=== PATIENT | female | born 1955 | race Caucasian/White ===

== ENCOUNTER 2017-10-24 21:42 | Emergency (ER) | payer MEDICARE ==
[2017-10-24 22:44] LABS: #Basophils 0.1 thou/uL (0.0-0.2); #Eosinphils 0.1 thou/uL (0.0-0.7); #Lymphocytes 1.5 thou/uL (1.20-3.40); #Monocytes 0.6 thou/uL (0.11-0.59); #Neutrophils 8.3 thou/uL (1.40-6.50); %Basophils 0.6 % (0.0-1.0); %Eosinophils 0.5 % (0.0-10.0); %Lymphocytes 13.8 % (21.0-51.0); Hemoglobin 13.5 g/dL (12.0-16.0); Mean Corpuscular HGB CONC 34.2 g/dL (32.0-36.0); Mean Corpuscular Volume 93.7 fL (78.0-98.0); Mean Platelet Volume 8.1 fL (7.4-10.4); Platelet Count 238 thou/uL (130-400); RBC Distribution Width 12.7 % (11.5-14.5); Red Blood Cell (RBC) Count 4.23 mill/uL (4.20-5.40); White Blood Cell (WBC) Count 10.5 thou/uL (4.8-10.8)
[2017-10-24 22:54] LABS: ALT (SGPT) 39 U/L (8-55); AST (SGOT) 26 U/L (5-34); Alkaline Phosphatase 94 U/L (40-150); Anion Gap 19 mmol/L (10-20); BUN (Urea Nitrogen) 12 mg/dL (9.8-20.1); Bilirubin, Total 0.2 mg/dL (0.2-1.2); Calc. Creatinine Clearance 0 mL/min (70-130); Calcium 9.7 mg/dL (7.8-10.44); Carbon Dioxide 23 mmol/L (22-29); Chloride 105 mmol/L (98-107); Estimated GFR-MDRD 71; Globulin 3.2 g/dL (2.4-3.5); Glucose 133 mg/dL (70-105); Protein, Total 8.2 g/dL (6.0-8.3); Sodium 143 mmol/L (136-145)
[2017-10-24] MEDS ORDERED: Promethazine HCl 25 MG/ML VIAL ONE (23:14)
--- NOTE | 2017-10-24 23:17 | RAD ---
ACUTE ABDOMINAL SERIES WITH FRONTAL VIEW CHEST AND TWO VIEW ABDOMEN: 10/24/17 INDICATION: Vomiting. Pain of the abdomen. FINDINGS: There is no evidence of consolidation, effusion or pneumothorax. No free air beneath the hemidiaphrag ms. There is elevation of the right hemidiaphragm. There are differential air fluid levels within th e right abdomen on the upright view. IMPRESSION: 1. No free air. 2. No lobar consolidation of the lungs. 3. Differential air fluid levels in the right abdomen. This could relate to an ileus or obstruct ion. Recommend a followup CT scan utilizing IV and enteric contrast. POS: [facility]
--- NOTE | 2017-10-24 23:28 | CT ---
HEAD CT NONCONTRAST: 10/24/17 COMPARISON: 01/05/12. INDICATION: Fall with head injury and vomiting. FINDINGS: There is normal size of ventricular system. No acute intracranial hemorrhage, mass effect, or midline shift. Calvarium is intact. No pneumocephalus. There is right mastoid opacification. A posterior sca lp hematoma is present. IMPRESSION: 1. No acute intracranial hemorrhage or mass effect. 2. Posterior scalp hematoma. 3. Right mastoid opacification. POS: [facility]
== END 2017-10-25 01:23 | disposition home or self-care (01) ==
LOC: ERS 21:42
DX: S00.31XA Abrasion of nose, initial encounter (principal); S00.211A Abrasion of right eyelid and periocular area, initial encounter; R11.2 Nausea with vomiting, unspecified; F31.9 Bipolar disorder, unspecified; F41.9 Anxiety disorder, unspecified; W22.8XXA Striking against or struck by other objects, initial encounter
CPT/HCPCS: 70450; 74022; 80053; 80307; 85025; 96365; 96366; J2550

== ENCOUNTER 2019-08-18 12:31 | Outpatient (CLI) | payer MEDICARE ==
--- NOTE | 2019-08-18 16:48 | NM ---
Radionucleotide hepatobiliary scan and gallbladder ejection fraction HISTORY: Right upper quadrant pain. FINDINGS: Early images show physiologic uptake of radiotracer throughout the hepatic parenchyma. Gall bladder first visualized at 11 minutes. Uptake is evident within the small bowel at 20 minutes. After administration of CCK analog, some excretion of radiotracer from the gallbladder to the small b owel is evident. Ejection fraction calculated at 16%. IMPRESSION : No evidence of biliary obstruction. Evidence of chronic gallbladder dyskinesis with abnormal gallbladder ejection fraction..
== END 2019-08-18 12:32 | disposition home or self-care (01) ==
LOC: NM 12:31
PROVIDERS: ATTEND Family Medicine
DX: K80.20 Calculus of gallbladder without cholecystitis without obstruction (principal)
CPT/HCPCS: 78227; A9537

== ENCOUNTER 2019-08-28 06:34 | Outpatient (CLI) | payer MEDICARE, OTHER ==
[2019-08-28 16:04] LABS: #Basophils 0.1 thou/uL (0.0-0.2); #Eosinphils 0.2 thou/uL (0.0-0.7); #Lymphocytes 2.5 thou/uL (1.20-3.40); #Monocytes 0.5 thou/uL (0.11-0.59); #Neutrophils 3.2 thou/uL (1.40-6.50); %Basophils 1.3 % (0.0-1.0); %Eosinophils 2.6 % (0.0-10.0); %Monocytes 7.9 % (0.0-10.0); %Neutrophils 49.3 % (42.0-75.0); Hemoglobin 13.2 g/dL (12.0-16.0); Mean Corpuscular HGB CONC 33.4 g/dL (32.0-36.0); Mean Corpuscular Hemoglobin 31.2 pg (27.0-31.0); Mean Corpuscular Volume 93.5 fL (78.0-98.0); Platelet Count 204 thou/uL (130-400); RBC Distribution Width 11.8 % (11.5-14.5); Red Blood Cell (RBC) Count 4.22 mill/uL (4.20-5.40); White Blood Cell (WBC) Count 6.5 thou/uL (4.8-10.8)
[2019-08-28 16:13] LABS: ALT (SGPT) 20 U/L (8-55); AST (SGOT) 18 U/L (5-34); Albumin 4.4 g/dL (3.4-4.8); Alkaline Phosphatase 64 U/L (40-110); Anion Gap 10 mmol/L (10-20); BUN (Urea Nitrogen) 9 mg/dL (9.8-20.1); Bilirubin, Direct 0.2 mg/dL (0.1-0.3); Bilirubin, Total 0.5 mg/dL (0.2-1.2); Calc. Creatinine Clearance 0 mL/min (70-130); Calcium 9.4 mg/dL (7.8-10.44); Carbon Dioxide 28 mmol/L (23-31); Chloride 104 mmol/L (98-107); Estimated GFR-MDRD 72; Glucose 99 mg/dL (80-115); Potassium 4.2 mmol/L (3.5-5.1); Protein, Total 6.7 g/dL (6.0-8.3); Sodium 138 mmol/L (136-145)
[2019-08-29 14:25] LABS: SARS-CoV-2 MS2 Positive; SARS-CoV-2 N Gene Negative; SARS-CoV-2 S Gene Negative; SARS-CoV-2 orf1ab Negative
== END 2019-08-28 06:35 | disposition home or self-care (01) ==
LOC: LABBT 06:34
PROVIDERS: ATTEND Surgery
DX: Z01.812 Encounter for preprocedural laboratory examination (principal); Z11.59 Encounter for screening for other viral diseases; K80.20 Calculus of gallbladder without cholecystitis without obstruction
CPT/HCPCS: 80048; 80076; 85025; U0003; 87635

== ENCOUNTER 2019-09-01 11:07 | Day surgery (SDC) | payer MEDICARE ==
[2019-08-27 10:41] VITALS: BMI 30.2
[2019-09-01] MEDS ORDERED: Dexamethasone 20 MG/5 ML VIAL ONE (11:31)
[2019-09-01] MEDS ORDERED: Glycopyrrolate 0.2 MG/ML 5 ML SYRINGE ONE (11:31)
[2019-09-01] MEDS ORDERED: Ondansetron PF 4 MG/2 ML Vial ONE (11:31)
[2019-09-01] MEDS ORDERED: PROPOFOL 200 MG/20 ML VIAL ONE (11:31)
[2019-09-01] MEDS ORDERED: Rocuronium Bromide 10 MG/ML (10ML VIAL) ONE (11:31)
[2019-09-01] MEDS ORDERED: Lidocaine 1% PF 5 ML VIAL ONE (11:31)
[2019-09-01] MEDS ORDERED: Midazolam HCl 2 mg/2 ml Vial ONE (13:19)
[2019-09-01] MEDS ORDERED: Lidocaine 1% w/Epinephrine 1:100K 20 ML VIAL ONE (13:19)
[2019-09-01] MEDS ORDERED: Fentanyl 100 MCG/2 ML VIAL ONE ×4 (13:19→15:49)
[2019-09-01] MEDS ORDERED: HYDROmorphone 0.5 MG/0.5 ML SYRINGE ONE (13:19)
[2019-09-01] MEDS ORDERED: Bupivacaine 0.25% HCL 30 ML VIAL ONE (13:19)
[2019-09-01] MEDS ORDERED: Lidocaine 2% Jelly 5 ML TUBE ONE (13:20)
[2019-09-01] MEDS ORDERED: Promethazine HCl 25 MG/ML VIAL ONE ×2 (15:13→18:17)
[2019-09-01] MEDS ORDERED: HYDROmorphone 2 MG/ML VIAL ONE (15:57)
[2019-09-01] MEDS ORDERED: HYDROcodone/Acetaminophen 5/325 mg Tablet ONE (18:14)
--- NOTE | 2019-09-02 00:55 | OP ---
DATE OF PROCEDURE: 09/01/2019 PREOPERATIVE DIAGNOSIS: Symptomatic gallstones. POSTOPERATIVE DIAGNOSIS: Symptomatic gallstones. PROCEDURE PERFORMED: Laparoscopic cholecystectomy. ANESTHESIA: General. ESTIMATED BLOOD LOSS: Minimal. COMPLICATIONS: None. SPECIMEN: Gallbladder. FINDINGS: Significant intraabdominal adhesions. TECHNIQUE: The patient was taken to the operating room and laid supine on the operating room table. After general anesthetic was obtained, the abdomen was prepped and draped in sterile fashion. A left subcostal 5 mm Optiview trocar was placed in usual fashion and high-flow pneumoperitoneum was obtained. The patient had significant abdominal adhesions in her abdomen that made placement of the other port sites difficult, so an additional 5 mm port was placed in the left lateral abdomen. This allows for sharp dissection and taking down these adhesions. There was no injury to any intraabdominal structures during the adhesiolysis. After significant adhesiolysis without injury, the other ports were able to be put in. A 12 mm port was placed below the umbilicus and 2 right upper quadrant 5-mm ports. The gallbladder was able to be retracted from the gallbladder fossa. The peritoneum was opened anterior and posteriorly. The critical view of triangle was seen showing only the cystic duct and cystic artery branching medial to lateral. There were no other branching structures. Two clips were placed proximally and one distally and the cystic duct was cut using laparoscopic scissors. Cystic artery was taken in the same way. Cautery was then used to dissect the gallbladder out of the gallbladder fossa. The gallbladder was placed in EndoCatch bag and brought out through the 12-mm trocar site. This trocar site was closed using GraNee needle Vicryl tie. There was no bleeding in the right upper quadrant. There was no evidence of injury to any intraabdominal structures. All port sites were infiltrated using local anesthetic. All ports were removed under camera visualization and pneumoperitoneum was let down. Vicryl was used to close the fascial defect below the umbilicus. All incisions were irrigated and closed using 4-0 Monocryl and Dermabond. The patient was sent to Recovery in stable condition. All instrument counts, needle counts, lap counts were correct. Job ID: [id number]
== END 2019-09-01 19:00 | disposition home or self-care (01) ==
LOC: SDC 11:07
PROVIDERS: ATTEND Surgery
PROC: 0FT44ZZ Resection of Gallbladder, Percutaneous Endoscopic Approach (ICD-10-PCS; principal; 2019-09-01)
DX: K80.10 Calculus of gallbladder with chronic cholecystitis without obstruction (principal); K66.0 Peritoneal adhesions (postprocedural) (postinfection); J30.2 Other seasonal allergic rhinitis; M79.7 Fibromyalgia; F41.9 Anxiety disorder, unspecified; M19.90 Unspecified osteoarthritis, unspecified site; G89.29 Other chronic pain; Z79.899 Other long term (current) drug therapy; Z88.6 Allergy status to analgesic agent
CPT/HCPCS: 88304; J0690; J1100; J1170; J2001; J2250; J2405; J2550; J2704; J3010; S0020

== ENCOUNTER 2022-09-14 10:38 | Outpatient (CLI) | payer MEDICARE, OTHER ==
[2022-09-14 12:40] LABS: #Eosinphils 0.2 10x3/uL (0.0-0.5); #Monocytes 0.8 10x3/uL (0.0-1.1); #Neutrophils 4.1 10x3/uL (1.5-8.4); %Basophils 0.5 % (0.0-2.0); %Eosinophils 2.3 % (0.0-6.0); %Lymphocytes 34.7 % (18.0-47.0); %Monocytes 9.8 % (0.0-10.0); %Neutrophils 52.2 % (40.0-75.0); Mean Corpuscular HGB CONC 31.8 g/dL (32.0-36.0); Mean Corpuscular Hemoglobin 30.2 pg (27.0-33.0); Mean Corpuscular Volume 95.1 fl (81.6-98.3); Mean Platelet Volume 10.9 fl (7.4-10.4); Platelet Count 213 10x3/uL (150-450); RBC Distribution Width 13.2 % (11.5-14.5); White Blood Cell (WBC) Count 7.9 10x3/uL (3.5-10.5)
[2022-09-14 13:42] LABS: ALT (SGPT) 23 U/L (8-55); AST (SGOT) 17 U/L (5-34); Albumin 4.6 g/dL (3.4-4.8); Alkaline Phosphatase 72 U/L (40-110); Anion Gap 17 mmol/L (10-20); BUN (Urea Nitrogen) 17 mg/dL (9.8-20.1); Bilirubin, Total 0.3 mg/dL (0.2-1.2); Calc. Creatinine Clearance 0 mL/min (70-130); Carbon Dioxide 21 mmol/L (23-31); Chloride 106 mmol/L (98-107); Estimated GFR 90; Globulin 2.7 g/dL (2.4-3.5); Glucose 91 mg/dL (80-115); Potassium 4.8 mmol/L (3.5-5.1); Protein, Total 7.3 g/dL (5.8-8.1); Sodium 139 mmol/L (136-145)
[2022-09-14 13:50] LABS: Thyroid Stimulating Hormone 2.5132 uIU/mL (0.35-4.94)
[2022-09-15 02:47] LABS: T4 6.42 ug/dL (4.87-11.72)
== END 2022-09-14 10:39 | disposition home or self-care (01) ==
LOC: LABBT 10:38
PROVIDERS: ATTEND Neurological Surgery
DX: Z01.818 Encounter for other preprocedural examination (principal); M54.16 Radiculopathy, lumbar region
CPT/HCPCS: 80053; 84436; 84443; 84479; 85025; 93005; 93010

== ENCOUNTER 2022-09-18 06:15 | Observation (INO) | payer MEDICARE, OTHER ==
[2022-09-14 11:58] VITALS: BMI 30.9
[2022-09-18] MEDS ORDERED: Dexmedetomidine 200 MCG/2 ML VIAL ONE (06:29)
[2022-09-18] MEDS ORDERED: Fentanyl 250 MCG/5 ML VIAL ONE ×2 (06:29→09:22)
[2022-09-18] MEDS ORDERED: SUGAMMADEX SODIUM 200 MG/2 ML VIAL ONE (06:30)
[2022-09-18] MEDS ORDERED: Ketamine 50 MG/ML (10ML VIAL) ONE (07:02)
[2022-09-18] MEDS ORDERED: HYDROmorphone 0.5 MG/0.5 ML SYRINGE ONE ×6 (07:02→12:32)
[2022-09-18] MEDS ORDERED: CEFAZOLIN 2 GM VIAL ONE (07:09)
[2022-09-18] MEDS ORDERED: Sodium Chloride 0.9% 100 ML ONE (07:09)
[2022-09-18] MEDS ORDERED: Rocuronium Bromide 10 MG/ML (10ML VIAL) ONE (07:26)
[2022-09-18] MEDS ORDERED: PROPOFOL 200 MG/20 ML VIAL ONE (07:26)
[2022-09-18] MEDS ORDERED: ePHEDrine Sulfate 50 MG/10 ML VIAL ONE (07:26)
[2022-09-18] MEDS ORDERED: Ondansetron PF 4 MG/2 ML Vial ONE (07:26)
[2022-09-18] MEDS ORDERED: Dexamethasone 20 MG/5 ML VIAL ONE (07:26)
[2022-09-18] MEDS ORDERED: Ketorolac Tromethamine 30 MG/ML VIAL ONE (07:26)
[2022-09-18] MEDS ORDERED: Lidocaine 1% PF 5 ML VIAL ONE (07:26)
[2022-09-18] MEDS ORDERED: Vancomycin 1 GM VIAL ONE (07:46)
[2022-09-18] MEDS ORDERED: Acetaminophen 325 MG TAB PO PRN (08:36)
[2022-09-18] MEDS ORDERED: Ondansetron PF 4 MG/2 ML Vial IVP PRN (08:36)
[2022-09-18] MEDS ORDERED: Mag-Al 1200 mg/1200 mg/30 ML UDCUP PO PRN (08:36)
[2022-09-18] MEDS ORDERED: diphenhydrAMINE 50 MG/ML VIAL IVP PRN (08:36)
[2022-09-18] MEDS ORDERED: Promethazine 25 MG TAB PO PRN (08:36)
[2022-09-18] MEDS ORDERED: HYDROcodone/Acetaminophen 10/325 mg Tablet PO PRN (08:36)
[2022-09-18] MEDS ORDERED: Milk Of Magnesia 30 ML UDCUP PO PRN (08:36)
[2022-09-18] MEDS ORDERED: traMADol HCl 50 MG TAB PO PRN (08:36)
[2022-09-18] MEDS ORDERED: Ondansetron HCl/PF 4 MG/2 ML Vial IVP PRN (08:50)
[2022-09-18] MEDS ORDERED: Promethazine HCl 25 MG/ML VIAL IM PRN (08:50)
[2022-09-18] MEDS ORDERED: HYDROmorphone 2 MG/ML VIAL SLOW IVP PRN (08:50)
[2022-09-18] MEDS: Morphine 2 MG/ML VIAL SLOW IVP PRN ×2 (14:07→17:56)
[2022-09-18] MEDS: Fluticasone Propionate Nasal Spray 16 gm Bottle NASAL SCH (14:12)
[2022-09-18] MEDS: Sodium Chloride 0.9% 1,000 ML IV SCH (14:13)
[2022-09-18] MEDS: Sertraline 25 MG TAB PO SCH (14:14)
[2022-09-18] MEDS: Loratadine 10 MG TAB PO SCH (14:14)
[2022-09-18] MEDS: Venlafaxine HCl 37.5 MG TAB PO SCH (14:14)
[2022-09-18] MEDS: HYDROcodone/Acetaminophen 10/325 mg Tablet PO PRN ×2 (15:17→20:46)
[2022-09-18] MEDS: CEFAZOLIN 2 GM in Sodium Chloride 0.9% 100 ML IVPB SCH (15:45)
[2022-09-18] MEDS: Lubiprostone 8 MCG CAP PO SCH (17:54)
[2022-09-18] MEDS ORDERED: Gabapentin 300 MG CAP PO SCH (21:00)
[2022-09-18] MEDS ORDERED: Montelukast Sodium 10 mg Tablet PO SCH (21:00)
[2022-09-19] MEDS: CEFAZOLIN 2 GM in Sodium Chloride 0.9% 100 ML IVPB SCH (00:24)
[2022-09-19] MEDS: Sodium Chloride 0.9% 1,000 ML IV SCH ×2 (00:25→09:28)
[2022-09-19] MEDS: Morphine 2 MG/ML VIAL SLOW IVP PRN (00:29)
[2022-09-19] MEDS: HYDROcodone/Acetaminophen 10/325 mg Tablet PO PRN ×3 (05:03→14:21)
[2022-09-19] MEDS ORDERED: Levothyroxine Sodium 75 MCG TAB PO SCH (06:00)
[2022-09-19] MEDS ORDERED: Liothyronine Sodium 5 MCG TAB PO SCH (06:00)
[2022-09-19 07:35] VITALS: BP 106/57; TEMP 98.2
[2022-09-19] MEDS: Loratadine 10 MG TAB PO SCH (09:26)
[2022-09-19] MEDS: Cyclobenzaprine 10 MG TAB PO PRN ×2 (09:26→14:21)
[2022-09-19] MEDS: Sertraline 25 MG TAB PO SCH (09:26)
[2022-09-19] MEDS: Lubiprostone 8 MCG CAP PO SCH (09:27)
[2022-09-19] MEDS: Venlafaxine HCl 37.5 MG TAB PO SCH (09:28)
[2022-09-19] MEDS: Fluticasone Propionate Nasal Spray 16 gm Bottle NASAL SCH (09:28)
== END 2022-09-19 14:22 | disposition home or self-care (01) ==
LOC: SDC 06:15 → T4-A 13:46
PROVIDERS: ADMIT Neurological Surgery; ATTEND Neurological Surgery
PROC: 0SG0071 Fusion of Lumbar Vertebral Joint with Autologous Tissue Substitute, Posterior Approach, Posterior Column, Open Approach (ICD-10-PCS; principal; 2022-09-18)
PROC: 01NB0ZZ Release Lumbar Nerve, Open Approach (ICD-10-PCS; 2022-09-18)
DX: M54.16 Radiculopathy, lumbar region (principal); Z88.8 Allergy status to other drugs, medicaments and biological substances; F41.9 Anxiety disorder, unspecified; F32.A Depression, unspecified; E03.9 Hypothyroidism, unspecified; M79.7 Fibromyalgia; Z79.899 Other long term (current) drug therapy
CPT/HCPCS: 20930; 20936; 22612; 22840; 63047; 97116; 97530; C1713 ×4; C1889 ×2; J1100; J1170; J1885; J2272; J2405; J2704; J3010; J3370; J3490; J7050

== ENCOUNTER 2023-02-05 15:08 | Outpatient (CLI) | payer MEDICARE, OTHER | END 2023-02-05 15:09 | disposition home or self-care (01) | LOC: SCSMRI 15:08 | PROVIDERS: ATTEND Specialist | DX: M54.12 Radiculopathy, cervical region (principal); M48.02 Spinal stenosis, cervical region; M48.03 Spinal stenosis, cervicothoracic region | CPT/HCPCS: 72141 ==